=== PATIENT | male | born 2005 | race Caucasian/White ===

== ENCOUNTER 2023-11-06 10:04 | Emergency (ER) | payer MEDICAID ==
[~2023-11-06] VITALS: Ht 167.6 cm; Wt 73.0 kg
[2023-11-06 10:29] VITALS: O2SAT 99
[2023-11-06] MEDS ORDERED: CLOT15CR27 TP (13:27)
[2023-11-06 13:32] VITALS: BP 126/78; PULSE 80; RESP 16; TEMP 37.16964; O2SAT 99
== END 2023-11-06 13:37 | disposition home or self-care (01) ==
LOC: ER 10:04
DX: N48.1 Balanitis (principal)
CPT/HCPCS: 99282

== ENCOUNTER 2023-11-14 11:42 | Emergency (ER) | payer MEDICAID ==
[~2023-11-14] VITALS: Ht 170.2 cm; Wt 75.0 kg
[~2023-11-14 11:42] MED LIST: CLOT15CR27 TP
[2023-11-14 11:47] VITALS: O2SAT 98
[2023-11-14] MEDS ORDERED: HYDR28.485 TOP (14:15)
[2023-11-14 14:32] VITALS: BP 125/88; PULSE 78; RESP 18; TEMP 36.78072; O2SAT 98
== END 2023-11-14 14:35 | disposition home or self-care (01) ==
LOC: ER 12:24
DX: R21 Rash and other nonspecific skin eruption (principal)
CPT/HCPCS: 99282